=== PATIENT | male | born 1970 | race Caucasian/White ===

== ENCOUNTER 2018-03-30 21:43 | Emergency (ER) | payer BC, OTHER ==
[2018-03-30 21:58] VITALS: O2SAT 99
--- NOTE | 2018-03-30 22:20 | C.PDOC ---
History Of Present Illness 48 year old male with a history of hypercholesterolemia presents to the emergency department with complaints of left forearm numbness since 7PM tonight. Patient reports falling asleep at 3PM and feeling L forearm numbness radiating from his elbow to his L bottom 2 digits upon waking up. He denies chest pain, shortness of breath. No orthopnea, pnd or leg swelling, no hx of blood clots. Time Seen by Provider: 03/30/18 22:19 Chief Complaint (Nursing): Weakness/Neurological Deficit History Per: Patient History/Exam Limitations: no limitations Onset/Duration Of Symptoms: Hrs Current Symptoms Are (Timing): Still Present Associated Symptoms Preceding Syncopal Episode: No Predromal Symptoms (Sudden Onset) Seizure Or Post-ictal Symptoms: None Past Medical History Reviewed: Historical Data, Nursing Documentation, Vital Signs Vital Signs: Last Vital Signs Temp 98.2 F 03/31/18 00:22 Pulse 64 03/31/18 00:22 Resp 18 03/31/18 00:22 BP 116/81 03/31/18 00:22 Pulse Ox 99 03/31/18 00:22 - Medical History PMH: Hypercholesterolemia Surgical History: No Surg Hx Family History: States: No Known Family Hx - Social History Hx Tobacco Use: No Hx Alcohol Use: Yes Hx Substance Use: No - Immunization History Hx Tetanus Toxoid Vaccination: No Hx Influenza Vaccination: No Hx Pneumococcal Vaccination: No Review Of Systems Cardiovascular: Negative for: Chest Pain Respiratory: Negative for: Shortness of Breath Neurological: Positive for: Numbness (left-forearm numbness) Physical Exam - Physical Exam Appears: Well, Non-toxic, No Acute Distress Skin: Warm, Dry Head: Atraumatic, Normacephalic Eye(s): bilateral: Normal Inspection, PERRL, EOMI Neck: Normal, Trachea Midline, Supple, No Other (No meningeal signs-kerning's, bredinski's) Chest: Symmetrical Cardiovascular: Rhythm Regular, No Friction Rub, No Murmur Respiratory: No Rales, No Rhonchi, No Wheezing Gastrointestinal/Abdominal: Soft, No Tenderness, No Guarding, No Rebound Extremity: Normal ROM (all extremities), No Swelling (legs) Pulses: Left Dorsalis Pedis: Normal, Right Dorsalis Pedis: Normal Neurological/Psych: Oriented x3, Normal Speech, Normal Cognition, Normal Cranial Nerves, No Cerebellar Signs, Normal Motor, Normal Sensation, Other (L ulnar neuropathy described by pt (ulnar dermatome parathesia)) ED Course And Treatment - Laboratory Results Result Diagrams: 03/30/18 22:58 03/30/18 22:58 ECG Rhythm: Sinus Rhythm ECG Interpretation: Normal Interpretation Of ECG: No STEMI Rate From EC O2 Sat by Pulse Oximetry: 99 (RA) Medical Decision Making Medical Decision Makin yr old male p/w L forearm parathesia after sleeping. Concerned about TX per pt- no 1st degree family hx, seen by cards 2 days ago and has f/u stress test and echo planned next month. Has not had CP or sob. Heart score Age: 1 RF: 0 EK Trop: pend Story: 0 Low risk pending trop Plan: EKG CMP Magnesium Troponin CBC CXR One View Appreciate consult w/ Dr. Amadou Cuellar: Clear for d/c home per Cards given negative trop and EKG. CXR, labs unremarkable, trop wnl EKG unremarkable Disposition - Disposition Referrals: Amadou Cuellar MD [Staff Provider] - Disposition: HOME/ ROUTINE Disposition Time: 12:13 Condition: GOOD Additional Instructions: MOIRA BO, thank you for letting us take care of you today. Your provider was Attila Schwab and you were treated for LT ARM NUMBNESS. The emergency medical care you received today was directed at your acute symptoms. If you were prescribed any medication, please fill it and take as directed. It may take several days for your symptoms to resolve. Return to the Emergency Department if your symptoms worsen, do not improve, or if you have any other problems. Please contact your doctor or call one of the physicians/clinics you have been referred to that are listed on the Patient Visit Information form that is included in your discharge packet. Bring any paperwork you were given at discharge with you along with any medications you are taking to your follow up visit. Our treatment cannot replace ongoing medical care by a primary care provider outside of the emergency department. Thank you for allowing the [facility] team to be part of your care today. If you had an X-Ray or CT scan: A Radiologist will review the ED reading if any change in treatment is needed we will contact you. If you had a blood, urine, or wound culture: It will take several days for the results, if any change in treatment is needed we will contact you. If you had an STI test: It will take 48 hours for the results. Please call after 1 week if you have not heard back. Instructions: Paresthesias (DC) Forms: [facility] (Citizen Of [place]), Work Excuse - Clinical Impression Clinical Impression: Hand paresthesia - Scribe Statement The provider has reviewed the documentation as recorded by the Scribe (Neo Enriquez) Provider Attestation: All medical record entries made by the Scribe were at my direction and personally dictated by me. I have reviewed the chart and agree that the record accurately reflects my personal performance of the history, physical exam, medical decision making, and the department course for this patient. I have also personally directed, reviewed, and agree with the discharge instructions and disposition.
[2018-03-30 23:01] LABS: BASO # 0.1 K/uL (0.0-0.2); BASO % 1.1 % (0.0-2.0); EOS # 0.1 K/uL (0.0-0.7); EOS % 1.4 % (0.0-4.0); HEMOGLOBIN 14.6 g/dL (12.0-18.0); LYMPH # 1.7 K/uL (1.0-4.3); LYMPH % 25.4 % (20.0-40.0); MEAN CELL VOLUME 87.9 fL (80.0-94.0); MEAN CORPUSCULAR HEMOGLOBIN 30.4 pg (27.0-31.0); MEAN CORPUSCULAR HGB CONC 34.6 g/dL (33.0-37.0); MEAN PLATELET VOLUME 8.3 fL (7.2-11.7); MONO # 0.5 K/uL (0.0-0.8); MONO % 8.1 % (0.0-10.0); NEUT # 4.3 K/uL (1.8-7.0); NRBC % 0.1 % (0.0-2.0); RBC 4.82 Mil/uL (4.40-5.90); RED CELL DISTRIBUTION WIDTH 12.7 % (11.5-14.5); WHITE BLOOD COUNT 6.7 K/uL (4.8-10.8)
[2018-03-30 23:14] LABS: ALB/GLOB RATIO 1.6 (1.0-2.1); ALBUMIN 4.3 g/dL (3.5-5.0); ALT/SGPT 44 U/L (21-72); AST/SGOT 30 U/L (17-59); BLOOD UREA NITROGEN 9 mg/dL (9-20); GFR NON-AFRICAN AMERICAN > 60
[2018-03-31 00:23] VITALS: BP 116/81; PULSE 64; RESP 18; TEMP 98.2
--- NOTE | 2018-03-31 10:30 | RAD ---
Chest x-ray single frontal view History: Left arm paresthesias. Comparison: None available. Findings: No focal infiltrate or effusion. Heart size within normal limits. Impression: No focal infiltrate or effusion.
== END 2018-03-31 00:25 | disposition home or self-care (01) ==
LOC: C.ER 21:43
DX: E78.00 Pure hypercholesterolemia, unspecified (principal)